=== PATIENT | female | born 1965 | race Caucasian/White ===

== ENCOUNTER 2019-02-07 12:45 | Emergency (ER) | payer MEDICAID ==
[~2019-02-07] VITALS: Ht 157.5 cm; Wt 60.0 kg
[~2019-02-07 12:45] MED LIST: AMIT100T7 PO; HYDR-3972 PO; LEVO25TA2 PO; LISI10TA4 PO; OMEP-50 PO; [UNRECOGNIZED DRUG - CODE] SQ
[2019-02-07 12:55] VITALS: BP 124/76
[2019-02-07] MEDS ORDERED: proparacaine 0.5% ophthalmic drops 15ml EACHEYE ONE (13:20)
[2019-02-07] MEDS ORDERED: ketorolac tromethamine 15mg/ml inj. IM ONE (13:50)
[2019-02-07] MEDS ORDERED: proCHLORperazine 10 MG/2 ml inj IM ONE (13:50)
[2019-02-07] MEDS ORDERED: diphenhydrAMINE 50 mg/ml inj IM ONE (13:50)
[2019-02-07] MEDS ORDERED: polymyxin B sulf/tmp ophth drops 10ml EACHEYE SCH (17:00)
== END 2019-02-07 14:30 | disposition home or self-care (01) ==
LOC: ER 12:45
DX: H10.9 Unspecified conjunctivitis (principal); G43.909 Migraine, unspecified, not intractable, without status migrainosus; I10 Essential (primary) hypertension; K21.9 Gastro-esophageal reflux disease without esophagitis; Z86.718 Personal history of other venous thrombosis and embolism; Z90.710 Acquired absence of both cervix and uterus; Z98.51 Tubal ligation status; Z88.5 Allergy status to narcotic agent; Z79.899 Other long term (current) drug therapy
CPT/HCPCS: 96372; 99283; J0780; J1200; J1885

== ENCOUNTER 2019-07-21 05:00 | Emergency (ER) | payer MEDICAID ==
[~2019-07-21] VITALS: Ht 157.5 cm; Wt 59.1 kg
[2019-07-21] MEDS ORDERED: ondansetron/PF 4mg/2ml inj IV ONE (05:30)
[2019-07-21] MEDS ORDERED: famotidine 20mg tablet PO ONE (05:30)
[2019-07-21] MEDS ORDERED: ketorolac trometh. 30mg/ml inj. IV ONE (05:30)
[2019-07-21] MEDS ORDERED: mag hydrox/Alum hydrox/simeth 30ml oral suspension PO ONE (05:30)
[2019-07-21 05:32] LABS: BASOPHILS # (AUTO) 0.1 X10'3 (0-0.2); BASOPHILS % (AUTO) 0.8 % (0-1); CLARITY,URINE SLIGHTLY CLOUDY (Clear); COLOR,URINE YELLOW (Yellow); EOSINOPHILS # (AUTO) 0.1 X10'3 (0-0.9); EOSINOPHILS % (AUTO) 0.8 % (0-6); GLUCOSE, URINE NEGATIVE (Neg); HEMATOCRIT 43.1 % (35.0-45.0); HEMOGLOBIN 14.7 g/dl (12.0-16.0); KETONES,URINE NEGATIVE (Neg); LEUKOCYTE ESTERASE ,URINE SMALL (Neg); LYMPHOCYTES # (AUTO) 2.4 X10'3 (1.1-4.8); LYMPHOCYTES % (AUTO) 21.5 % (21-51); MEAN CORPUSCULAR HEMOGLOBIN 29.2 PG (27.0-31.0); MEAN CORPUSCULAR HGB CONC 34.2 g/dL (33.0-36.5); MEAN CORPUSCULAR VOLUME 85.5 FL (78-98); MEAN PLATELET VOLUME 9.6 FL (7.4-10.4); MONOCYTES # (AUTO) 0.4 X10'3 (0-0.9); MONOCYTES % (AUTO) 3.8 % (2-12); NEUTROPHILS % (AUTO) 73.1 % (42-75); NITRITES, URINE POSITIVE (Neg); OCCULT BLOOD,URINE MODERATE (Neg); PLATELET COUNT 190 X10'3 (140-440); PROTEIN,URINE NEGATIVE (Neg); RED BLOOD COUNT 5.05 X10'6 (4.20-5.60); RED CELL DISTRIBUTION WIDTH 15.5 % (11.5-14.5); UROBILINOGEN,URINE 0.2 E.U/dL (0.2-1.0); WHITE BLOOD COUNT 10.9 X10'3 (4.5-11.0)
[2019-07-21 05:38] LABS: UA COLLECTION TYPE CLN CATCH MIDSTREAM
[2019-07-21 05:39] LABS: BACTERIA,URINE 2+ /HPF (Neg); RBC,URINE 0-2 /HPF (0-2); SQUAMOUS EPITHELIAL CELL,UR FEW /LPF (FEW)
[2019-07-21 05:40] LABS: WBC,URINE 0-4 /HPF (0-4)
[2019-07-21 05:43] LABS: ALANINE AMINOTRANSFERASE 21 U/L (12-78); ALBUMIN 3.9 G/DL (3.4-5.0); ALBUMIN/GLOBULIN RATIO 1.1 (1.1-1.5); ALKALINE PHOSPHATASE 119 IU/L (46-116); AMYLASE 39 U/L (25-115); ANION GAP 9 (8-16); ASPARTATE AMINO TRANSFERASE 15 U/L (10-37); BILIRUBIN,TOTAL 0.2 MG/DL (0.1-1.0); BLOOD UREA NITROGEN 18 MG/DL (7-18); BUN/CREATININE RATIO 13.6 (6.6-38.0); CALCIUM 9.1 MG/DL (8.5-10.1); CHLORIDE 104 MMOL/L (99-107); CREATININE 1.32 MG/DL (0.40-0.90); GLUCOSE 109 MG/DL (70-104); LIPASE 65 U/L (73-393); POTASSIUM 4.3 MMOL/L (3.5-5.1); SODIUM 138 MMOL/L (135-145); TOTAL CARBON DIOXIDE 25.5 MMOL/L (24-32); TOTAL PROTEIN 7.6 G/DL (6.4-8.2); eGFR 42 ML/MIN
[2019-07-21] MEDS ORDERED: ONDA8TAB6 PO (05:55)
[2019-07-21] MEDS ORDERED: SULF1TAB49 PO (05:55)
[2019-07-21] MEDS ORDERED: CefTRIAXone/D5W-Rocephin 1gm 50 ML IV ONE (05:55)
[2019-07-21] MEDS ORDERED: normal saline 1000ml 1,000 ML IV ONE (05:55)
[2019-07-21] MEDS ORDERED: morphine 4 MG/ML inj SYRINge IV ONE ×2 (06:00→08:10)
[2019-07-21 08:31] VITALS: BP 125/66
[2019-07-21] MEDS ORDERED: TRAM50TA2 PO (08:53)
== END 2019-07-21 09:10 | disposition home or self-care (01) ==
LOC: ER 05:01
DX: N39.0 Urinary tract infection, site not specified (principal); K80.20 Calculus of gallbladder without cholecystitis without obstruction; G43.909 Migraine, unspecified, not intractable, without status migrainosus; I10 Essential (primary) hypertension; K21.9 Gastro-esophageal reflux disease without esophagitis; Z87.442 Personal history of urinary calculi; Z90.710 Acquired absence of both cervix and uterus; Z98.51 Tubal ligation status; Z86.718 Personal history of other venous thrombosis and embolism; Z88.5 Allergy status to narcotic agent; Z79.899 Other long term (current) drug therapy
CPT/HCPCS: 36415; 74176; 76700; 80053; 81001; 82150; 83690; 85025; 87088; 96365; 96375; 96376; 99285; J0696; J1885; J2270; J2405; J7030; 87077; 87186

== ENCOUNTER 2021-03-29 09:49 | Emergency (ER) | payer MEDICAID ==
[~2021-03-29] VITALS: Ht 157.5 cm; Wt 68.8 kg
[~2021-03-29 09:49] MED LIST changes: +AMIT-189 PO; +AMIT100T61 PO; -AMIT100T7 PO; +HYDR-3964 PO; -HYDR-3972 PO; +LISI10TA27 PO; -LISI10TA4 PO; +ONDA8TAB13 PO
[2021-03-29 10:13] VITALS: BP 186/100
[2021-03-29] MEDS ORDERED: HYDROcodone/acetaminophen 10/325mg tab PO ONE (10:20)
[2021-03-29] MEDS ORDERED: LIDO700A32 TOP (11:55)
[2021-03-29] MEDS ORDERED: HYDR-3965 PO (11:55)
== END 2021-03-29 12:36 | disposition home or self-care (01) ==
LOC: ER 09:50
DX: S22.41XA Multiple fractures of ribs, right side, initial encounter for closed fracture (principal); G43.909 Migraine, unspecified, not intractable, without status migrainosus; K21.9 Gastro-esophageal reflux disease without esophagitis; I10 Essential (primary) hypertension; Z87.442 Personal history of urinary calculi; Z88.5 Allergy status to narcotic agent; Z79.899 Other long term (current) drug therapy; W18.39XA Other fall on same level, initial encounter; Y93.89 Activity, other specified; Y92.89 Other specified places as the place of occurrence of the external cause; Y99.8 Other external cause status
CPT/HCPCS: 71045; 71100; 99284

== ENCOUNTER 2021-04-12 10:04 | Inpatient (IN) | payer MEDICAID ==
[~2021-04-12] VITALS: Ht 157.5 cm; Wt 63.6 kg
[~2021-04-12 10:04] MED LIST changes: +LIDO700A32 TOP
[2021-04-12 11:05] LABS: BASOPHILS % (AUTO) 0.2 % (0-1); EOSINOPHILS % (AUTO) 0 % (0-6); HEMATOCRIT 39.6 % (35.0-45.0); HEMOGLOBIN 13.3 g/dl (12.0-16.0); LYMPHOCYTES # (AUTO) 1.2 X10'3 (1.1-4.8); MEAN CORPUSCULAR HEMOGLOBIN 28.7 PG (27.0-31.0); MEAN CORPUSCULAR HGB CONC 33.5 g/dL (33.0-36.5); MEAN CORPUSCULAR VOLUME 85.6 FL (78-98); MEAN PLATELET VOLUME 9.7 FL (7.4-10.4); MONOCYTES # (AUTO) 0.9 X10'3 (0-0.9); NEUTROPHILS # (AUTO) 13.1 X10'3 (1.8-7.7); NEUTROPHILS % (AUTO) 85.8 % (42-75); PLATELET COUNT 189 X10'3 (140-440); RED BLOOD COUNT 4.62 X10'6 (4.20-5.60); WHITE BLOOD COUNT 15.2 X10'3 (4.5-11.0)
[2021-04-12 11:10] LABS: CLARITY,URINE CLOUDY (Clear); COLOR,URINE YELLOW (Yellow); UA COLLECTION TYPE CLN CATCH MIDSTREAM
[2021-04-12 11:11] LABS: GLUCOSE, URINE NEGATIVE (Neg); KETONES,URINE NEGATIVE (Neg); LEUKOCYTE ESTERASE ,URINE MODERATE (Neg); NITRITES, URINE NEGATIVE (Neg); OCCULT BLOOD,URINE LARGE (Neg); PROTEIN,URINE 100 mg/dl (Neg)
[2021-04-12 11:18] LABS: ALANINE AMINOTRANSFERASE 25 U/L (12-78); ALBUMIN 2.9 G/DL (3.4-5.0); ALBUMIN/GLOBULIN RATIO 0.6 (1.1-1.5); ALKALINE PHOSPHATASE 130 IU/L (46-116); ANION GAP 15 (8-16); ASPARTATE AMINO TRANSFERASE 21 U/L (10-37); BILIRUBIN,TOTAL 1.4 MG/DL (0.1-1.0); BLOOD UREA NITROGEN 16 MG/DL (7-18); BUN/CREATININE RATIO 9.2 (6.6-38.0); CALCIUM 8.5 MG/DL (8.5-10.1); CHLORIDE 98 MMOL/L (99-107); CREATININE 1.74 MG/DL (0.40-0.90); GLUCOSE 124 MG/DL (70-104); LIPASE < 50 U/L (73-393); POTASSIUM 3.3 MMOL/L (3.5-5.1); SODIUM 136 MMOL/L (135-145); TOTAL CARBON DIOXIDE 22.6 MMOL/L (24-32); TOTAL PROTEIN 7.8 G/DL (6.4-8.2); eGFR 30 ML/MIN
[2021-04-12 11:22] LABS: BACTERIA,URINE 3+ /HPF (Neg); SQUAMOUS EPITHELIAL CELL,UR MODERATE /LPF (FEW)
[2021-04-12 11:23] LABS: MUCUS STRANDS MODERATE /LPF (Neg); RBC,URINE 0-2 /HPF (0-2); WBC,URINE 30-50 /HPF (0-4)
[2021-04-12] MEDS ORDERED: HYDROcodone/acetaminophen 10/325mg tab PO ONE (14:00)
[2021-04-12] MEDS ORDERED: CefTRIAXone 2gm/D5W 50ml BAG 50 ML IV ONE (14:00)
[2021-04-12] MEDS ORDERED: normal saline 1000ML IV soln IV ONE (14:00)
[2021-04-12] MEDS ORDERED: ondansetron/PF 4mg/2ml inj IV ONE ×2 (14:00→14:40)
[2021-04-12] MEDS ORDERED: morphine 4 MG/ML inj SYRINge IV ONE (14:40)
[2021-04-12] MEDS ORDERED: mag hydrox/Alum hydrox/simeth 30ml oral suspension PO PRN (16:00)
[2021-04-12] MEDS ORDERED: magnesium hydroxide 30ml (MOM) UD suspension PO PRN (16:00)
[2021-04-12] MEDS ORDERED: ondansetron/PF 4mg/2ml inj IV PRN (16:00)
[2021-04-12] MEDS ORDERED: acetaminophen 325mg tablet PO PRN (16:00)
[2021-04-12] MEDS ORDERED: HYDROmorphone inj. 0.5 MG/0.5 ML DISP.SYRIN IV PRN (16:00)
[2021-04-12] MEDS ORDERED: LIDO700A47 TOP (16:19)
[2021-04-12] MEDS ORDERED: LEVO75TA7 PO (16:19)
[2021-04-12] MEDS ORDERED: ATOR20TA66 PO (16:19)
[2021-04-12] MEDS: normal saline 1000ml 1,000 ML IV SCH (16:22)
[2021-04-12] MEDS ORDERED: HYDR-3964 PO (16:34)
[2021-04-12] MEDS ORDERED: SUMATRIPTAN 6 MG/0.5 ML SQ PRN (17:50)
[2021-04-12] MEDS: HYDROcodone/acetaminophen 5mg/325mg tablet PO PRN (20:08)
[2021-04-12 21:00] VITALS: BP 96/64
[2021-04-12] MEDS: docusate sod 100mg capsule PO SCH (22:23)
[2021-04-12] MEDS: atorvastatin 20mg tablet PO SCH (22:24)
[2021-04-12] MEDS: amitriptyline 50mg tablet PO SCH (22:25)
[2021-04-12] MEDS: amitriptyline 25mg tablet PO SCH (22:25)
[2021-04-13] VITALS (10 sets, daily range): BP systolic 94–116; BP diastolic 59–92
[2021-04-13] MEDS: normal saline 1000ml 1,000 ML IV SCH ×3 (02:00→16:46)
[2021-04-13] MEDS: HYDROcodone/acetaminophen 5mg/325mg tablet PO PRN ×4 (02:38→22:35)
[2021-04-13 06:13] LABS: BASOPHILS % (AUTO) 0.1 % (0-1); EOSINOPHILS % (AUTO) 0 % (0-6); HEMATOCRIT 32.3 % (35.0-45.0); LYMPHOCYTES # (AUTO) 0.5 X10'3 (1.1-4.8); LYMPHOCYTES % (AUTO) 5.3 % (21-51); MEAN CORPUSCULAR HEMOGLOBIN 29.1 PG (27.0-31.0); MEAN CORPUSCULAR VOLUME 85.6 FL (78-98); MEAN PLATELET VOLUME 9.8 FL (7.4-10.4); MONOCYTES # (AUTO) 0.5 X10'3 (0-0.9); MONOCYTES % (AUTO) 5.3 % (2-12); NEUTROPHILS # (AUTO) 8.6 X10'3 (1.8-7.7); NEUTROPHILS % (AUTO) 89.3 % (42-75); PLATELET COUNT 135 X10'3 (140-440); RED BLOOD COUNT 3.77 X10'6 (4.20-5.60); RED CELL DISTRIBUTION WIDTH 17.6 % (11.5-14.5); WHITE BLOOD COUNT 9.7 X10'3 (4.5-11.0)
--- NOTE | 2021-04-13 06:33 | NUR ---
Problems reprioritized. Patient report given, questions answered & plan of care reviewed with RICHARD Reyes .
[2021-04-13 06:35] LABS: ALBUMIN 2.3 G/DL (3.4-5.0); ANION GAP 14 (8-16); BLOOD UREA NITROGEN 20 MG/DL (7-18); BUN/CREATININE RATIO 12.9 (6.6-38.0); CALCIUM 8.1 MG/DL (8.5-10.1); CHLORIDE 105 MMOL/L (99-107); CREATININE 1.55 MG/DL (0.40-0.90); GLUCOSE 106 MG/DL (70-104); SODIUM 139 MMOL/L (135-145); TOTAL CARBON DIOXIDE 20.3 MMOL/L (24-32); eGFR 34 ML/MIN
[2021-04-13 06:41] LABS: POTASSIUM 2.9 MMOL/L (3.5-5.1)
[2021-04-13] MEDS ORDERED: potassium Cl 40MEQ/1/2NS 520ml 520 ML IV PRN (07:35)
[2021-04-13] MEDS ORDERED: potassium Cl 20 mEq SR tablet PO PRN ×2 (07:35)
[2021-04-13] MEDS ORDERED: magnesium 4gm in 100ml NS 100 ML IV PRN (07:35)
[2021-04-13] MEDS ORDERED: magnesium Cl slow-release 64mg tablet PO PRN (07:35)
[2021-04-13] MEDS: pantoprazole 40mg Tablet.DR PO SCH (07:52)
[2021-04-13] MEDS: levoTHYROXINE 75mcg tablet PO SCH (07:53)
[2021-04-13] MEDS: lisinopril 10 MG tablet PO SCH (07:53)
[2021-04-13] MEDS: docusate sod 100mg capsule PO SCH ×2 (07:53→20:58)
[2021-04-13] MEDS: K and/or MAG REPLACEMENT MC SCH ×2 (07:54→20:00)
[2021-04-13] MEDS: CefTRIAXone/D5W-Rocephin 1gm 50 ML IV SCH (07:54)
[2021-04-13] MEDS: LIDOcaine 5% patch TP SCH ×2 (08:10→21:02)
[2021-04-13] MEDS ORDERED: POTASSIUM BICARB 20meq eff tab 20 MEQ TABLET.EFF PO PRN (08:19)
[2021-04-13 08:30] LABS: MAGNESIUM 1.9 MG/DL (1.5-2.4)
[2021-04-13] MEDS: POTASSIUM BICARB 20meq eff tab 20 MEQ TABLET.EFF PO PRN ×2 (09:51→16:46)
[2021-04-13] MEDS ORDERED: famotidine 10mg/ml inj IV ONE (13:20)
[2021-04-13] MEDS ORDERED: morphine 2 MG/ML inj. syringe IV PRN (13:30)
[2021-04-13] MEDS ORDERED: labetalol 20mg/4ml (5mg/ml) syringe IV PRN (13:30)
[2021-04-13] MEDS ORDERED: ringers solution, lacted 1,000 ML IV SCH (13:30)
[2021-04-13] MEDS ORDERED: iohexol 300 MG/1 ML 50ml polymer ONE (13:30)
[2021-04-13] MEDS ORDERED: fentaNYL/PF 50MCG/1 ML 2ML syringe IV PRN ×2 (13:30)
[2021-04-13] MEDS ORDERED: morphine 4 MG/ML inj SYRINge IV PRN (13:30)
[2021-04-13] MEDS ORDERED: hydrALAZINE 20mg/ml inj. IV PRN (13:30)
[2021-04-13] MEDS ORDERED: ondansetron/PF 4mg/2ml inj IV PRN (13:30)
[2021-04-13] MEDS ORDERED: fentaNYL/PF 50MCG/1 ML 2ML syringe ONE (13:40)
[2021-04-13] MEDS ORDERED: midazolam 1 mg/ML 2ml injection ONE (13:40)
[2021-04-13] MEDS ORDERED: etomidate 2mg/ml inj. ONE (13:41)
[2021-04-13] MEDS ORDERED: desflurane 240ml liquid inh. IH ONE (14:07)
[2021-04-13] MEDS ORDERED: ondansetron/PF 4mg/2ml inj ONE (14:15)
[2021-04-13] MEDS ORDERED: dexamethasone sod phosphate 4mg/ml inj. ONE (14:15)
--- NOTE | 2021-04-13 14:30 | NUR ---
Pt. taken down to OR for stent placement with Jorge.
--- NOTE | 2021-04-13 15:03 | NUR ---
ASSUME CARE PT AROUSABLE TO NAME VSS NO DISTRESS DENIES PAIN IV TO RARM 20G PATIENT IVF INFUSING WITHOUT DIFF. CONT TO MONITOR. Addendum: 04/13/21 at 1523 by Morena Cox RN Amended: Links added.
--- NOTE | 2021-04-13 15:49 | NUR ---
RECEIVED REPORT FROM RECOVERY
--- NOTE | 2021-04-13 15:54 | NUR ---
ASSIST PT UP TO BATHROOM VOID WITHOUT DIFF STATES FEELING SOME LOWER ABD PAIN ASSIST BACK TO BED STATES PAIN 12/11 MED WITH NORCO 5MG PO NO OTHER CHANGES MEETS CRITERIA TO DC TO ROOM REPORT CALLED TO RICHARD Addendum: 04/13/21 at 1555 by Morena Cox RN Amended: Links added.
--- NOTE | 2021-04-13 18:37 | NUR ---
GAVE REPORT TO TRAE RAMOS.
[2021-04-13] MEDS: atorvastatin 20mg tablet PO SCH (20:58)
[2021-04-13] MEDS: amitriptyline 50mg tablet PO SCH (20:58)
[2021-04-13] MEDS: amitriptyline 25mg tablet PO SCH (20:58)
[2021-04-13] MEDS: lactobacillus rhamnosus 10,000 MMU CELLS/CAPSULE PO SCH (20:59)
[2021-04-13] MEDS ORDERED: POTASSIUM BICARBONATE/CIT AC 10 MEQ TABLET.EFF PO PRN ×2 (21:55)
[2021-04-14] VITALS: BP 98/95
[2021-04-14] MEDS: HYDROcodone/acetaminophen 5mg/325mg tablet PO PRN ×3 (02:39→14:32)
[2021-04-14 06:13] LABS: BASOPHILS % (AUTO) 0.1 % (0-1); EOSINOPHILS % (AUTO) 0.2 % (0-6); HEMATOCRIT 30.1 % (35.0-45.0); HEMOGLOBIN 10.4 g/dl (12.0-16.0); LYMPHOCYTES # (AUTO) 1.1 X10'3 (1.1-4.8); LYMPHOCYTES % (AUTO) 13.7 % (21-51); MEAN CORPUSCULAR HEMOGLOBIN 29.3 PG (27.0-31.0); MEAN CORPUSCULAR HGB CONC 34.3 g/dL (33.0-36.5); MEAN CORPUSCULAR VOLUME 85.3 FL (78-98); MEAN PLATELET VOLUME 9.8 FL (7.4-10.4); MONOCYTES # (AUTO) 0.3 X10'3 (0-0.9); NEUTROPHILS # (AUTO) 6.5 X10'3 (1.8-7.7); PLATELET COUNT 152 X10'3 (140-440); RED BLOOD COUNT 3.53 X10'6 (4.20-5.60); RED CELL DISTRIBUTION WIDTH 17.9 % (11.5-14.5); WHITE BLOOD COUNT 7.9 X10'3 (4.5-11.0)
--- NOTE | 2021-04-14 06:22 | NUR ---
Problems reprioritized. Patient report given, questions answered & plan of care reviewed with RICHARD Salcido. .
[2021-04-14 06:33] LABS: ALBUMIN 1.9 G/DL (3.4-5.0); ANION GAP 6 (8-16); BLOOD UREA NITROGEN 21 MG/DL (7-18); BUN/CREATININE RATIO 16.8 (6.6-38.0); CALCIUM 8.3 MG/DL (8.5-10.1); CHLORIDE 109 MMOL/L (99-107); CREATININE 1.25 MG/DL (0.40-0.90); GLUCOSE 144 MG/DL (70-104); MAGNESIUM 2.2 MG/DL (1.5-2.4); POTASSIUM 5.7 MMOL/L (3.5-5.1); SODIUM 140 MMOL/L (135-145); TOTAL CARBON DIOXIDE 24.7 MMOL/L (24-32); eGFR 44 ML/MIN
[2021-04-14 07:00] VITALS: BP 113/66
[2021-04-14] MEDS: K and/or MAG REPLACEMENT MC SCH (08:00)
[2021-04-14] MEDS: normal saline 1000ml 1,000 ML IV SCH (08:00)
[2021-04-14] MEDS: lisinopril 10 MG tablet PO SCH (08:15)
[2021-04-14] MEDS: levoTHYROXINE 75mcg tablet PO SCH (08:16)
[2021-04-14] MEDS: lactobacillus rhamnosus 10,000 MMU CELLS/CAPSULE PO SCH (08:16)
[2021-04-14] MEDS: pantoprazole 40mg Tablet.DR PO SCH (08:16)
[2021-04-14] MEDS: docusate sod 100mg capsule PO SCH (08:16)
[2021-04-14] MEDS: CefTRIAXone/D5W-Rocephin 1gm 50 ML IV SCH (08:17)
[2021-04-14 13:00] VITALS: BP 130/60
--- NOTE | 2021-04-14 15:48 | NUR ---
PAGER ID: [phone] MESSAGE: [phone] Harry Sims: did you see this patient today? she's wondering if she can discharge? thanks, elyssa [phone]
[2021-04-14] MEDS ORDERED: CIPR-259 PO (16:22)
--- NOTE | 2021-04-14 17:09 | NUR ---
Patient stable and appropriate for discharge home with . IV removed, all belongings taken from room .New prescriptions e-scripted to [facility] per patient request. All discharge instructions and education given and reviewed with patient, all questions answered.
== END 2021-04-14 17:00 | disposition home or self-care (01) | DRG 710 ==
LOC: ER 10:04 → ED HOLD 16:03 → SUR 3N 20:26
PROVIDERS: ADMIT Family Medicine; ATTEND Family Medicine
PROC: 0T768DZ Dilation of Right Ureter with Intraluminal Device, Via Natural or Artificial Opening Endoscopic (ICD-10-PCS; 2021-04-13)
PROC: 0T778DZ Dilation of Left Ureter with Intraluminal Device, Via Natural or Artificial Opening Endoscopic (ICD-10-PCS; 2021-04-13)
PROC: 0TC68ZZ Extirpation of Matter from Right Ureter, Via Natural or Artificial Opening Endoscopic (ICD-10-PCS; principal; 2021-04-13 14:07)
DX: A41.9 Sepsis, unspecified organism (principal); N17.9 Acute kidney failure, unspecified; E03.9 Hypothyroidism, unspecified; N12 Tubulo-interstitial nephritis, not specified as acute or chronic; F17.210 Nicotine dependence, cigarettes, uncomplicated; F32.A Depression, unspecified; J44.9 Chronic obstructive pulmonary disease, unspecified; R31.9 Hematuria, unspecified; G43.909 Migraine, unspecified, not intractable, without status migrainosus; K21.9 Gastro-esophageal reflux disease without esophagitis; E87.6 Hypokalemia; I12.9 Hypertensive chronic kidney disease with stage 1 through stage 4 chronic kidney disease, or unspecified chronic kidney disease; N18.30 Chronic kidney disease, stage 3 unspecified; E78.5 Hyperlipidemia, unspecified; Z20.822 Contact with and (suspected) exposure to COVID-19; N20.2 Calculus of kidney with calculus of ureter; Z85.6 Personal history of leukemia; Z85.72 Personal history of non-Hodgkin lymphomas; Z87.442 Personal history of urinary calculi; Z90.710 Acquired absence of both cervix and uterus; Z88.5 Allergy status to narcotic agent; Z86.718 Personal history of other venous thrombosis and embolism; Z98.51 Tubal ligation status; Z90.49 Acquired absence of other specified parts of digestive tract; Z71.6 Tobacco abuse counseling
CPT/HCPCS: 36415; 71045; 74019; 74176; 76000; 80048; 80053; 81001; 82948; 83690; 83735; 85025; 85730; 87040; 87077; 87081; 87088; 87186; 87635; 93005; 99285; A4618; C1769; C2617; G0378; J0696; J1100; J2250; J2270; J2405; J3010; J7030; J7120; Q9967

== ENCOUNTER 2022-09-05 08:29 | Emergency (ER) | payer MEDICAID ==
[~2022-09-05] VITALS: Ht 157.5 cm; Wt 54.5 kg
[~2022-09-05 08:29] MED LIST changes: -AMIT-189 PO; +AMIT50TA15 PO; +ATOR20TA66 PO; -LEVO25TA2 PO; +LEVO75TA7 PO; -LIDO700A32 TOP; +LIDO700A47 TOP; -OMEP-50 PO; +OMEP20CA16 PO; -ONDA8TAB13 PO
[2022-09-05 08:52] VITALS: BP 103/70
--- NOTE | 2022-09-05 09:15 | NUR ---
0914 I have reviewed and agree with all interventions, assessments performed and documented by AYESHA Alvarez.
[2022-09-05] MEDS ORDERED: NEOM10DR45 LEFT EAR (10:04)
== END 2022-09-05 10:17 | disposition home or self-care (01) ==
LOC: ER 08:30
DX: H60.92 Unspecified otitis externa, left ear (principal); J02.9 Acute pharyngitis, unspecified; G43.909 Migraine, unspecified, not intractable, without status migrainosus; I10 Essential (primary) hypertension; J44.9 Chronic obstructive pulmonary disease, unspecified; K21.9 Gastro-esophageal reflux disease without esophagitis; F17.200 Nicotine dependence, unspecified, uncomplicated; Z90.710 Acquired absence of both cervix and uterus; Z98.51 Tubal ligation status; Z87.442 Personal history of urinary calculi; Z88.5 Allergy status to narcotic agent; Z79.899 Other long term (current) drug therapy
CPT/HCPCS: 99283

== ENCOUNTER 2023-05-18 05:22 | Inpatient (IN) | payer MEDICAID ==
[2023-05-11 14:51] LABS: BILIRUBIN,URINE NEGATIVE (Neg); CLARITY,URINE CLEAR (Clear); COLOR,URINE YELLOW (Yellow); GLUCOSE, URINE NEGATIVE (Neg); KETONES,URINE NEGATIVE (Neg); LEUKOCYTE ESTERASE ,URINE NEGATIVE (Neg); NITRITES, URINE NEGATIVE (Neg); OCCULT BLOOD,URINE SMALL (Neg); PROTEIN,URINE NEGATIVE (Neg); UROBILINOGEN,URINE 0.2 E.U/dL (0.2-1.0)
[2023-05-11 14:53] LABS: BASOPHILS % (AUTO) 0.7 % (0-1); EOSINOPHILS # (AUTO) 0.1 X10'3 (0-0.9); EOSINOPHILS % (AUTO) 1.7 % (0-6); LYMPHOCYTES # (AUTO) 1.8 X10'3 (1.1-4.8); LYMPHOCYTES % (AUTO) 38.5 % (21-51); MEAN CORPUSCULAR HEMOGLOBIN 30.2 PG (27.0-31.0); MEAN CORPUSCULAR HGB CONC 33.4 g/dL (33.0-36.5); MEAN CORPUSCULAR VOLUME 90.5 FL (78-98); MEAN PLATELET VOLUME 10.5 FL (7.4-10.4); MONOCYTES # (AUTO) 0.4 X10'3 (0-0.9); MONOCYTES % (AUTO) 7.4 % (2-12); NEUTROPHILS # (AUTO) 2.5 X10'3 (1.8-7.7); NEUTROPHILS % (AUTO) 51.7 % (42-75); PRE OP HEMATOCRIT 39.4 % (35.0-45.0); PRE OP HEMOGLOBIN 13.2 g/dL (12.0-16.0); PRE OP PLATELET COUNT 113 X10'3 (140-440); PRE OP WHITE BLOOD COUNT 4.8 10'3 (4.8-10.8); RED BLOOD COUNT 4.36 X10'6 (4.20-5.60); RED CELL DISTRIBUTION WIDTH 15.4 % (11.5-14.5)
[2023-05-11 14:56] LABS: UA COLLECTION TYPE CLN CATCH MIDSTREAM
[2023-05-11 14:57] LABS: BACTERIA,URINE FEW /HPF (Neg); MUCUS STRANDS FEW /LPF (Neg); SQUAMOUS EPITHELIAL CELL,UR FEW /LPF (FEW); WBC,URINE 0-4 /HPF (0-4)
[2023-05-11 15:06] LABS: PRE OP PROTIME 10.6 SECONDS (9.0-12.0)
[2023-05-11 15:17] LABS: ALBUMIN 3.8 G/DL (3.4-5.0); ALBUMIN/GLOBULIN RATIO 1.1 (1.1-1.5); ALKALINE PHOSPHATASE 80 IU/L (46-116); BLOOD UREA NITROGEN 17 MG/DL (7-18); BUN/CREATININE RATIO 19.3 (10.0-20.0); CALCIUM 8.5 MG/DL (8.5-10.1); CHLORIDE 105 MMOL/L (99-107); CREATININE 0.88 MG/DL (0.40-0.90); PRE OP ALT 16 U/L (30-65); PRE OP ANION GAP 6 (8-16); PRE OP AST 17 U/L (10-37); PRE OP BILIRUB, TOTAL 0.3 MG/DL (0.0-1.0); PRE OP POTASSIUM 3.9 MMOL/L (3.4-5.1); PRE OP SODIUM 140 MMOL/L (135-145); THYROID STIMULATING HORMONE 3.12 ulU/ml (0.34-4.50); TOTAL CARBON DIOXIDE 29.1 MMOL/L (24-32); TOTAL PROTEIN 7.2 G/DL (6.4-8.2); eGFR 66 ML/MIN
[2023-05-11 15:35] LABS: PRE OP GLUCOSE 58 MG/DL (70-104)
[2023-05-14 07:13] LABS: ABG BASE EXCESS -3.1 mmol/L (-2.0-2.0); ABG HCO3 21.1 mmol/L (22.0-26.0); ABG OXYGEN SATURATION 97.5 % (94-97); ABG PCO2 (T) 35.1 mmHg (32.0-45.0); ABG PH (T) 7.397 (7.350-7.450); ABG PO2 (T) 99.5 mmHg (75.0-100.0); FCOHb 1.5 % (0.0-3.9); FHHb 2.5 % (0.0-5.0); FMetHb 0.3 % (0.0-1.5); FO2Hb 95.7 % (94-97); MODE ROOM AIR
[2023-05-18] VITALS (27 sets, daily range): BP systolic 114–167; BP diastolic 52–86; PULSE 65–97; RESP 6–20; TEMP 98; O2SAT 95–100
[~2023-05-18] VITALS: Ht 157.5 cm; Wt 50.1 kg
[~2023-05-18 05:22] MED LIST changes: -AMIT100T61 PO; -AMIT50TA15 PO; -LIDO700A47 TOP; -LISI10TA27 PO; +TRAZ150T78 PO; -[UNRECOGNIZED DRUG - CODE] SQ; +ringers solution, lacted 1,000 ML IV SCH
[2023-05-18] MEDS ORDERED: famotidine 20mg tablet PO ONE (05:30)
[2023-05-18] MEDS ORDERED: cefazolin 2gm/D5W 100mL 100 ML IV ONE (05:30)
[2023-05-18] MEDS ORDERED: BUPIVACAINE liposomal/PF 13.3 MG/ML vial IM ONE ×2 (06:41→10:08)
[2023-05-18] MEDS ORDERED: BUPIVAcaine 2.5mg/ml inj 50ml vial (contains preservative) ONE (06:41)
[2023-05-18] MEDS ORDERED: fentaNYL /PF 50mcg/ml 5ml ampule ONE ×2 (08:07→10:32)
[2023-05-18] MEDS ORDERED: midazolam 1 mg/ML 2ml injection ONE (08:07)
[2023-05-18] MEDS ORDERED: propofol inj 20 ML IV ONE (08:08)
[2023-05-18] MEDS ORDERED: LIDOcaine 2% (20mg/ml) 5ml vial ONE (08:08)
[2023-05-18] MEDS ORDERED: ePHEDrine 50MG/ML INJ. ONE (08:10)
[2023-05-18] MEDS ORDERED: dexamethasone sod phosphate 4mg/ml inj. ONE (08:10)
[2023-05-18] MEDS ORDERED: rocuronium 10mg/ml inj IV ONE ×3 (08:10→09:26)
[2023-05-18] MEDS ORDERED: sevoflurane 250ml liquid IH ONE (08:22)
[2023-05-18] MEDS ORDERED: ondansetron/PF 4mg/2ml inj ONE (08:22)
[2023-05-18] MEDS ORDERED: BUPIVAcaine 2.5mg/ml inj 50ml vial (contains preservative) IJ ONE (10:07)
[2023-05-18] MEDS ORDERED: INDOCYANINE GREEN 25 MG/10 ML VIAL IV ONE (10:09)
[2023-05-18] MEDS ORDERED: ringers solution, lacted 1,000 ML IV SCH (11:00)
[2023-05-18] MEDS ORDERED: proCHLORperazine 10 MG/2 ml inj IV PRN (11:00)
[2023-05-18] MEDS ORDERED: enalaprilat dihydrate 2.5mg/2ml vial IV PRN (11:00)
[2023-05-18] MEDS ORDERED: labetalol 20mg/4ml (5mg/ml) syringe IV PRN (11:00)
[2023-05-18] MEDS ORDERED: meperidine/PF 25mg/ml syringe IV PRN ×3 (11:00)
[2023-05-18] MEDS ORDERED: morphine 2 MG/ML inj. syringe IV PRN ×2 (11:00→13:05)
[2023-05-18] MEDS ORDERED: ondansetron/PF 4mg/2ml inj IV PRN (11:00)
[2023-05-18] MEDS ORDERED: albumin (Human) 5% 250ml 250 ML IV ONE (12:43)
[2023-05-18] MEDS ORDERED: labetalol 20mg/4ml (5mg/ml) syringe IV ONE (12:49)
[2023-05-18] MEDS ORDERED: sugammadex 200mg/2ml injection IV ONE (12:57)
[2023-05-18] MEDS ORDERED: HYDROcodone/acetaminophen 10/325mg tab PO PRN ×2 (13:05)
[2023-05-18] MEDS ORDERED: albuterol 2.5 MG/3 ML nebule NEB PRN (13:05)
[2023-05-18] MEDS ORDERED: metoclopramide 5 mg/ml inj IV PRN (13:05)
[2023-05-18] MEDS ORDERED: glycopyrrolate 0.2mg/ml inj ONE (13:08)
[2023-05-18] MEDS ORDERED: neostigmine methylsulfate 1 MG/ML 10ml vial ONE (13:08)
[2023-05-18] MEDS: ketorolac trometh. 30mg/ml inj. IV SCH ×2 (13:33→19:57)
[2023-05-18] MEDS: morphine 4 MG/ML inj SYRINge IV PRN ×3 (13:36→15:25)
[2023-05-18] MEDS ORDERED: acetaminophen 1,000mg/100ml IV 100 ML IV ONE (13:50)
[2023-05-18 13:58] LABS: ABG BASE EXCESS -2.4 mmol/L (-2.0-2.0); ABG HCO3 23.3 mmol/L (22.0-26.0); ABG OXYGEN SATURATION 98.4 % (94-97); ABG PCO2 (T) 41.5 mmHg (32.0-45.0); ABG PH (T) 7.361 (7.350-7.450); ABG PO2 (T) 113.3 mmHg (75.0-100.0); FCOHb 0.2 % (0.0-3.9); FHHb 1.6 % (0.0-5.0); FLOW 2 L/min; FMetHb 0.3 % (0.0-1.5); FO2Hb 97.9 % (94-97); MODE NASAL CANNULA; TOTAL HEMOGLOBIN 11.7 G/dl (12.0-16.0)
[2023-05-18] MEDS ORDERED: naloxone 0.4 mg/ml inj IV PRN ×2 (15:40)
[2023-05-18] MEDS: potassium Cl 20mEq in D5-NS 1,000 ML IV SCH (15:44)
[2023-05-18] MEDS ORDERED: ceFAZolin/D5W- 1GM premix 50 ML IV SCH (16:00)
[2023-05-18] MEDS: ceFAZolin/D5W- 1GM premix 50 ML IV SCH (16:28)
[2023-05-18] MEDS ORDERED: HYDROmorph/NS 0.2 mg/ml PCA 100 ML IV SCH (17:00)
[2023-05-18] MEDS: HYDROmorph/NS 0.2 mg/ml PCA 100 ML IV SCH ×4 (17:12→23:00)
[2023-05-18] MEDS: gabapentin 300mg capsule PO SCH (19:56)
[2023-05-19] VITALS (24 sets, daily range): BP systolic 113–157; BP diastolic 54–73; PULSE 69–91; RESP 9–22; O2SAT 95–100
[2023-05-19] MEDS: potassium Cl 20mEq in D5-NS 1,000 ML IV SCH ×2 (00:11→13:15)
[2023-05-19] MEDS: ceFAZolin/D5W- 1GM premix 50 ML IV SCH (00:11)
[2023-05-19] MEDS: ondansetron/PF 4mg/2ml inj IV PRN ×4 (00:18→20:46)
[2023-05-19] MEDS: HYDROmorph/NS 0.2 mg/ml PCA 100 ML IV SCH ×12 (01:00→23:00)
[2023-05-19] MEDS: ketorolac trometh. 30mg/ml inj. IV SCH ×4 (02:51→20:46)
[2023-05-19 03:15] LABS: ALANINE AMINOTRANSFERASE 25 U/L (12-78); ALBUMIN 2.9 G/DL (3.4-5.0); ALBUMIN/GLOBULIN RATIO 1.1 (1.1-1.5); ALKALINE PHOSPHATASE 55 IU/L (46-116); ANION GAP 8 (8-16); ASPARTATE AMINO TRANSFERASE 25 U/L (10-37); BILIRUBIN,TOTAL 0.4 MG/DL (0.1-1.0); BLOOD UREA NITROGEN 11 MG/DL (7-18); BUN/CREATININE RATIO 13.6 (10.0-20.0); CALCIUM 8.2 MG/DL (8.5-10.1); CHLORIDE 107 MMOL/L (99-107); CREATININE 0.81 MG/DL (0.40-0.90); GLUCOSE 124 MG/DL (70-104); MAGNESIUM 1.6 MG/DL (1.5-2.4); PHOSPHORUS 3.4 MG/DL (2.3-4.5); POTASSIUM 4.3 MMOL/L (3.5-5.1); SODIUM 139 MMOL/L (135-145); TOTAL CARBON DIOXIDE 23.7 MMOL/L (24-32); TOTAL PROTEIN 5.5 G/DL (6.4-8.2); eCRCL 59 ML/MIN; eGFR 72 ML/MIN
[2023-05-19 03:34] LABS: BASOPHILS % (AUTO) 0.2 % (0-1); EOSINOPHILS % (AUTO) 0 % (0-6); HEMATOCRIT 29.4 % (35.0-45.0); LYMPHOCYTES # (AUTO) 1.2 X10'3 (1.1-4.8); LYMPHOCYTES % (AUTO) 12.8 % (21-51); MEAN CORPUSCULAR HEMOGLOBIN 30.4 PG (27.0-31.0); MEAN CORPUSCULAR HGB CONC 33.9 g/dL (33.0-36.5); MEAN CORPUSCULAR VOLUME 89.6 FL (78-98); MEAN PLATELET VOLUME 10.3 FL (7.4-10.4); MONOCYTES # (AUTO) 0.5 X10'3 (0-0.9); MONOCYTES % (AUTO) 5.2 % (2-12); NEUTROPHILS # (AUTO) 7.8 X10'3 (1.8-7.7); NEUTROPHILS % (AUTO) 81.8 % (42-75); PLATELET COUNT 105 X10'3 (140-440); RED BLOOD COUNT 3.28 X10'6 (4.20-5.60); RED CELL DISTRIBUTION WIDTH 14.8 % (11.5-14.5); WHITE BLOOD COUNT 9.6 X10'3 (4.5-11.0)
[2023-05-19] MEDS: gabapentin 300mg capsule PO SCH ×2 (07:55→20:46)
[2023-05-19] MEDS ORDERED: PCA WASTE DOCUMENTATION 1 MG ML MC SCH (11:30)
[2023-05-20] VITALS (24 sets, daily range): BP systolic 119–153; BP diastolic 57–68; PULSE 69–92; RESP 12–23; O2SAT 95–98
[2023-05-20] MEDS: HYDROmorph/NS 0.2 mg/ml PCA 100 ML IV SCH ×11 (01:00→23:00)
[2023-05-20 02:49] LABS: BASOPHILS % (AUTO) 0.5 % (0-1); EOSINOPHILS # (AUTO) 0.1 X10'3 (0-0.9); HEMATOCRIT 25.9 % (35.0-45.0); HEMOGLOBIN 8.7 g/dl (12.0-16.0); LYMPHOCYTES % (AUTO) 28.9 % (21-51); MEAN CORPUSCULAR HEMOGLOBIN 30.5 PG (27.0-31.0); MEAN CORPUSCULAR HGB CONC 33.6 g/dL (33.0-36.5); MEAN CORPUSCULAR VOLUME 90.7 FL (78-98); MEAN PLATELET VOLUME 10.1 FL (7.4-10.4); MONOCYTES # (AUTO) 0.5 X10'3 (0-0.9); MONOCYTES % (AUTO) 7.4 % (2-12); NEUTROPHILS # (AUTO) 4.4 X10'3 (1.8-7.7); NEUTROPHILS % (AUTO) 62.2 % (42-75); PLATELET COUNT 96 X10'3 (140-440); RED BLOOD COUNT 2.85 X10'6 (4.20-5.60); RED CELL DISTRIBUTION WIDTH 15.2 % (11.5-14.5); WHITE BLOOD COUNT 7.1 X10'3 (4.5-11.0)
[2023-05-20 03:02] LABS: ALANINE AMINOTRANSFERASE 19 U/L (12-78); ALBUMIN 2.6 G/DL (3.4-5.0); ALKALINE PHOSPHATASE 54 IU/L (46-116); ANION GAP 7 (8-16); ASPARTATE AMINO TRANSFERASE 26 U/L (10-37); BILIRUBIN,TOTAL 0.2 MG/DL (0.1-1.0); BLOOD UREA NITROGEN 20 MG/DL (7-18); CALCIUM 8.4 MG/DL (8.5-10.1); CHLORIDE 107 MMOL/L (99-107); CREATININE 0.91 MG/DL (0.40-0.90); GLUCOSE 99 MG/DL (70-104); MAGNESIUM 1.7 MG/DL (1.5-2.4); PHOSPHORUS 4.7 MG/DL (2.3-4.5); POTASSIUM 3.9 MMOL/L (3.5-5.1); SODIUM 145 MMOL/L (135-145); TOTAL CARBON DIOXIDE 31.3 MMOL/L (24-32); TOTAL PROTEIN 5.2 G/DL (6.4-8.2); eCRCL 53 ML/MIN; eGFR 63 ML/MIN
[2023-05-20] MEDS: ketorolac trometh. 30mg/ml inj. IV SCH ×4 (03:07→20:34)
[2023-05-20] MEDS: potassium Cl 20mEq in D5-NS 1,000 ML IV SCH ×2 (03:07→18:16)
[2023-05-20] MEDS: ondansetron/PF 4mg/2ml inj IV PRN (05:40)
[2023-05-20] MEDS: morphine 4 MG/ML inj SYRINge IV PRN (08:22)
[2023-05-20] MEDS: gabapentin 300mg capsule PO SCH (08:26)
[2023-05-20] MEDS: enoxaparin 40mg/0.4ml syringe SUBCUT SCH (20:34)
[2023-05-21] VITALS (25 sets, daily range): BP systolic 127–167; BP diastolic 58–77; PULSE 69–88; RESP 12–18; O2SAT 94–99
[2023-05-21] MEDS: HYDROmorph/NS 0.2 mg/ml PCA 100 ML IV SCH ×12 (01:00→23:00)
[2023-05-21] MEDS: ketorolac trometh. 30mg/ml inj. IV SCH ×4 (01:53→19:51)
[2023-05-21 02:48] LABS: BASOPHILS % (AUTO) 0.5 % (0-1); EOSINOPHILS # (AUTO) 0.2 X10'3 (0-0.9); EOSINOPHILS % (AUTO) 2.3 % (0-6); HEMATOCRIT 28.5 % (35.0-45.0); HEMOGLOBIN 9.7 g/dl (12.0-16.0); LYMPHOCYTES # (AUTO) 2.1 X10'3 (1.1-4.8); LYMPHOCYTES % (AUTO) 23.1 % (21-51); MEAN CORPUSCULAR HEMOGLOBIN 30.7 PG (27.0-31.0); MEAN CORPUSCULAR HGB CONC 33.9 g/dL (33.0-36.5); MEAN CORPUSCULAR VOLUME 90.6 FL (78-98); MEAN PLATELET VOLUME 10.4 FL (7.4-10.4); MONOCYTES # (AUTO) 0.6 X10'3 (0-0.9); MONOCYTES % (AUTO) 6.1 % (2-12); NEUTROPHILS # (AUTO) 6.3 X10'3 (1.8-7.7); PLATELET COUNT 106 X10'3 (140-440); RED BLOOD COUNT 3.15 X10'6 (4.20-5.60); RED CELL DISTRIBUTION WIDTH 15.2 % (11.5-14.5); WHITE BLOOD COUNT 9.3 X10'3 (4.5-11.0)
[2023-05-21 02:57] LABS: ALANINE AMINOTRANSFERASE 18 U/L (12-78); ALBUMIN 2.7 G/DL (3.4-5.0); ALBUMIN/GLOBULIN RATIO 0.9 (1.1-1.5); ALKALINE PHOSPHATASE 60 IU/L (46-116); ANION GAP 6 (8-16); ASPARTATE AMINO TRANSFERASE 26 U/L (10-37); BILIRUBIN,TOTAL 0.4 MG/DL (0.1-1.0); BLOOD UREA NITROGEN 17 MG/DL (7-18); BUN/CREATININE RATIO 18.7 (10.0-20.0); CALCIUM 8.7 MG/DL (8.5-10.1); CHLORIDE 105 MMOL/L (99-107); CREATININE 0.91 MG/DL (0.40-0.90); GLUCOSE 113 MG/DL (70-104); MAGNESIUM 1.9 MG/DL (1.5-2.4); PHOSPHORUS 5.5 MG/DL (2.3-4.5); POTASSIUM 3.9 MMOL/L (3.5-5.1); SODIUM 142 MMOL/L (135-145); TOTAL CARBON DIOXIDE 30.7 MMOL/L (24-32); TOTAL PROTEIN 5.8 G/DL (6.4-8.2); eCRCL 53 ML/MIN; eGFR 63 ML/MIN
[2023-05-21] MEDS: enoxaparin 40mg/0.4ml syringe SUBCUT SCH (19:52)
[2023-05-22] VITALS (7 sets, daily range): BP systolic 149–157; BP diastolic 61–90; PULSE 68–85; RESP 15–20; TEMP 97.2–98.2; O2SAT 97–99
[2023-05-22] MEDS: HYDROmorph/NS 0.2 mg/ml PCA 100 ML IV SCH ×12 (01:00→23:00)
[2023-05-22] MEDS: ketorolac trometh. 30mg/ml inj. IV SCH ×4 (02:05→19:50)
[2023-05-22 07:38] LABS: BASOPHILS % (AUTO) 0.5 % (0-1); EOSINOPHILS # (AUTO) 0.2 X10'3 (0-0.9); EOSINOPHILS % (AUTO) 2.5 % (0-6); HEMATOCRIT 28.3 % (35.0-45.0); HEMOGLOBIN 9.6 g/dl (12.0-16.0); LYMPHOCYTES # (AUTO) 1.4 X10'3 (1.1-4.8); LYMPHOCYTES % (AUTO) 18.1 % (21-51); MEAN CORPUSCULAR HEMOGLOBIN 30.5 PG (27.0-31.0); MEAN CORPUSCULAR HGB CONC 33.8 g/dL (33.0-36.5); MEAN CORPUSCULAR VOLUME 90.4 FL (78-98); MEAN PLATELET VOLUME 10.4 FL (7.4-10.4); MONOCYTES # (AUTO) 0.5 X10'3 (0-0.9); MONOCYTES % (AUTO) 7.1 % (2-12); NEUTROPHILS # (AUTO) 5.4 X10'3 (1.8-7.7); NEUTROPHILS % (AUTO) 71.8 % (42-75); PLATELET COUNT 125 X10'3 (140-440); RED BLOOD COUNT 3.13 X10'6 (4.20-5.60); WHITE BLOOD COUNT 7.6 X10'3 (4.5-11.0)
[2023-05-22 07:53] LABS: ALANINE AMINOTRANSFERASE 18 U/L (12-78); ALBUMIN 2.6 G/DL (3.4-5.0); ALBUMIN/GLOBULIN RATIO 0.7 (1.1-1.5); ALKALINE PHOSPHATASE 79 IU/L (46-116); ANION GAP 9 (8-16); ASPARTATE AMINO TRANSFERASE 25 U/L (10-37); BILIRUBIN,TOTAL 0.4 MG/DL (0.1-1.0); BLOOD UREA NITROGEN 16 MG/DL (7-18); BUN/CREATININE RATIO 18.2 (10.0-20.0); CALCIUM 8.7 MG/DL (8.5-10.1); CHLORIDE 105 MMOL/L (99-107); CREATININE 0.88 MG/DL (0.40-0.90); GLUCOSE 93 MG/DL (70-104); MAGNESIUM 2.1 MG/DL (1.5-2.4); PHOSPHORUS 4.8 MG/DL (2.3-4.5); POTASSIUM 4.2 MMOL/L (3.5-5.1); SODIUM 142 MMOL/L (135-145); TOTAL CARBON DIOXIDE 28.5 MMOL/L (24-32); TOTAL PROTEIN 6.2 G/DL (6.4-8.2); eCRCL 54 ML/MIN; eGFR 66 ML/MIN
[2023-05-22] MEDS ORDERED: mag hydrox/Alum hydrox/simeth 30ml oral suspension PO PRN (14:55)
[2023-05-22] MEDS: enoxaparin 40mg/0.4ml syringe SUBCUT SCH (19:49)
[2023-05-23] VITALS (9 sets, daily range): BP systolic 128–168; BP diastolic 71–92; PULSE 71–81; RESP 11–19; TEMP 97.7–98.3; O2SAT 94–100
[2023-05-23] MEDS: HYDROmorph/NS 0.2 mg/ml PCA 100 ML IV SCH ×6 (01:00→11:00)
[2023-05-23] MEDS: ketorolac trometh. 30mg/ml inj. IV SCH ×2 (02:23→07:37)
[2023-05-23 02:49] LABS: BASOPHILS % (AUTO) 0.5 % (0-1); EOSINOPHILS # (AUTO) 0.2 X10'3 (0-0.9); EOSINOPHILS % (AUTO) 3.5 % (0-6); HEMATOCRIT 29.1 % (35.0-45.0); HEMOGLOBIN 9.8 g/dl (12.0-16.0); LYMPHOCYTES # (AUTO) 1.5 X10'3 (1.1-4.8); LYMPHOCYTES % (AUTO) 22.9 % (21-51); MEAN CORPUSCULAR HEMOGLOBIN 30.4 PG (27.0-31.0); MEAN CORPUSCULAR HGB CONC 33.6 g/dL (33.0-36.5); MEAN CORPUSCULAR VOLUME 90.7 FL (78-98); MEAN PLATELET VOLUME 9.3 FL (7.4-10.4); MONOCYTES # (AUTO) 0.5 X10'3 (0-0.9); MONOCYTES % (AUTO) 7.7 % (2-12); NEUTROPHILS # (AUTO) 4.4 X10'3 (1.8-7.7); NEUTROPHILS % (AUTO) 65.4 % (42-75); PLATELET COUNT 143 X10'3 (140-440); RED BLOOD COUNT 3.21 X10'6 (4.20-5.60); RED CELL DISTRIBUTION WIDTH 15.1 % (11.5-14.5); WHITE BLOOD COUNT 6.7 X10'3 (4.5-11.0)
[2023-05-23 03:17] LABS: ALANINE AMINOTRANSFERASE 24 U/L (12-78); ALBUMIN 2.6 G/DL (3.4-5.0); ALBUMIN/GLOBULIN RATIO 0.7 (1.1-1.5); ALKALINE PHOSPHATASE 59 IU/L (46-116); ANION GAP 9 (8-16); ASPARTATE AMINO TRANSFERASE 20 U/L (10-37); BILIRUBIN,TOTAL 0.4 MG/DL (0.1-1.0); BLOOD UREA NITROGEN 13 MG/DL (7-18); BUN/CREATININE RATIO 17.3 (10.0-20.0); CALCIUM 8.5 MG/DL (8.5-10.1); CHLORIDE 105 MMOL/L (99-107); CREATININE 0.75 MG/DL (0.40-0.90); GLUCOSE 88 MG/DL (70-104); MAGNESIUM 2.2 MG/DL (1.5-2.4); PHOSPHORUS 3.7 MG/DL (2.3-4.5); POTASSIUM 3.9 MMOL/L (3.5-5.1); SODIUM 140 MMOL/L (135-145); TOTAL CARBON DIOXIDE 26.3 MMOL/L (24-32); TOTAL PROTEIN 6.1 G/DL (6.4-8.2); eCRCL 64 ML/MIN; eGFR 79 ML/MIN
[2023-05-23] MEDS: HYDROcodone/acetaminophen 5mg/325mg tablet PO PRN ×3 (13:36→22:50)
[2023-05-23] MEDS: enoxaparin 40mg/0.4ml syringe SUBCUT SCH (20:48)
[2023-05-24 02:00] VITALS: BP 150/76; PULSE 70; RESP 15; TEMP 98.2; O2SAT 98
[2023-05-24] MEDS: HYDROcodone/acetaminophen 5mg/325mg tablet PO PRN (03:33)
[2023-05-24 06:00] VITALS: BP 162/82; PULSE 71; RESP 18; RESP 71; TEMP 97.3; O2SAT 98
[2023-05-24 07:56] VITALS: PULSE 71; RESP 14; O2SAT 98
[2023-05-24 11:00] VITALS: BP 165/79; RESP 16; TEMP 97.6; O2SAT 98
== END 2023-05-24 12:35 | disposition home health service (06) | DRG 120 ==
LOC: PAS IN 05:22 → CICU 2S 15:15 → PCU 3S 05-21 21:35
PROVIDERS: ADMIT Surgery; ATTEND Surgery
PROC: 0BNC4ZZ Release Right Upper Lung Lobe, Percutaneous Endoscopic Approach (ICD-10-PCS; 2023-05-18)
PROC: 8E0W4CZ Robotic Assisted Procedure of Trunk Region, Percutaneous Endoscopic Approach (ICD-10-PCS; 2023-05-18)
PROC: 07B74ZZ Excision of Thorax Lymphatic, Percutaneous Endoscopic Approach (ICD-10-PCS; 2023-05-18)
PROC: 02HV33Z Insertion of Infusion Device into Superior Vena Cava, Percutaneous Approach (ICD-10-PCS; 2023-05-18)
PROC: 0BTC4ZZ Resection of Right Upper Lung Lobe, Percutaneous Endoscopic Approach (ICD-10-PCS; principal; 2023-05-18 08:22)
DX: C34.11 Malignant neoplasm of upper lobe, right bronchus or lung (principal); J94.8 Other specified pleural conditions; J44.9 Chronic obstructive pulmonary disease, unspecified; K21.9 Gastro-esophageal reflux disease without esophagitis; G43.909 Migraine, unspecified, not intractable, without status migrainosus; R91.8 Other nonspecific abnormal finding of lung field; Z90.49 Acquired absence of other specified parts of digestive tract; Z88.5 Allergy status to narcotic agent; Z90.710 Acquired absence of both cervix and uterus; Z86.718 Personal history of other venous thrombosis and embolism; Z87.442 Personal history of urinary calculi; Z92.21 Personal history of antineoplastic chemotherapy; Z85.6 Personal history of leukemia
CPT/HCPCS: 36415; 36600; 71045; 71046; 71250; 80053; 81001; 82803; 82948; 83735; 84100; 84443; 85018; 85025; 85610; 85730; 86885; 86900; 86901; 86920; 87070; 87075; 87081; 94664; 94668; 94760; 97110; 97116; 97161; 97530; 97535; A4615; A4618; A6213; A6222; A6223; A6253; A6258; A6402; A6449; A7000; A7048; C1758; C9250; C9290; G0378; J0131; J0690; J1100; J1170; J1650; J1885; J2250; J2270; J2405; J2704; J2710; J3010; J3480; J3490; J7030; J7040; J7120; P9045